=== PATIENT | female | born 1975 | race Hispanic/Latino ===

== ENCOUNTER → 2021-08-03 | Outpatient (CLI) | payer OTHER | END | disposition home or self-care (01) | LOC: DTH 13:37 | PROVIDERS: ATTEND Surgery | DX: Z71.3 Dietary counseling and surveillance (principal); E66.9 Obesity, unspecified; Z68.42 Body mass index [BMI] 45.0-49.9, adult | CPT/HCPCS: 97802 ==

== ENCOUNTER 2021-10-31 07:04 | Day surgery (SDC) | payer OTHER, MEDICARE ==
[~2021-10-31] VITALS: Ht 162.6 cm; Wt 127.5 kg
[2021-10-31] VITALS (8 sets, daily range): BP systolic 133–140; BP diastolic 55–88
[~2021-10-31 07:04] MED LIST: 0.9%NACL 1000ML 1,000 ML IV ONE
[2021-10-31] MEDS ORDERED: LIDOCAINE PF 100MG/5ML (2%) SYRINGE 5ML ONE (09:26)
[2021-10-31] MEDS ORDERED: PROPOFOL 10 MG/ML 20ML VIAL IV ONE (09:26)
[2021-10-31] MEDS ORDERED: GLYCOPYRROLATE 1 MG/5 ML SYRINGE ONE (09:26)
[2021-10-31] MEDS ORDERED: MIDAZOLAM HCL 1 MG/ML 2ML VIAL ONE (09:26)
[2021-10-31] MEDS ORDERED: ONDANSETRON 4MG INJ ONE (09:27)
[2021-10-31] MEDS ORDERED: ESMOLOL HCL 10 MG/ML 10 ML VIAL ONE (09:40)
== END 2021-10-31 10:06 | disposition home or self-care (01) ==
LOC: DAH 07:04 → ENDO 07:04
PROVIDERS: ATTEND Surgery
DX: K21.9 Gastro-esophageal reflux disease without esophagitis (principal); Z20.822 Contact with and (suspected) exposure to COVID-19; I10 Essential (primary) hypertension; E11.9 Type 2 diabetes mellitus without complications; E66.01 Morbid (severe) obesity due to excess calories; G47.30 Sleep apnea, unspecified; F41.9 Anxiety disorder, unspecified; F32.9 Major depressive disorder, single episode, unspecified; E78.5 Hyperlipidemia, unspecified; Z98.890 Other specified postprocedural states; Z68.42 Body mass index [BMI] 45.0-49.9, adult
CPT/HCPCS: 36415; 43239; 71045; 84703; 87635; 93005; A4215 ×2; A4221; A4222; A4223; A4606; A4620; A4657; A4663; C9803; J2001; J2250; J2405; J2704; J3490 ×2; J7030

== ENCOUNTER 2021-12-02 14:00 | Inpatient (IN) | payer OTHER, MEDICARE ==
[~2021-12-02] VITALS: Ht 162.6 cm; Wt 125.4 kg
[2021-12-02 16:30] LABS: BASOPHILS % (AUTO) 0.7 % (0.0-5.0); EOSINOPHILS % (AUTO) 0.9 % (0.0-8.0); HEMATOCRIT 40.7 % (36-48); LYMPHOCYTES % (AUTO) 15.5 % (21.0-51.0); MEAN CORPUSCULAR HGB CONC 32.2 g/dL (32.0-36.0); MEAN CORPUSCULAR VOLUME 80.9 fL (79-99); MONOCYTES % (AUTO) 3.7 % (3.0-13.0); NEUTROPHILS % (AUTO) 77.4 % (40.0-77.0); PLATELET COUNT (AUTO) 309 K/uL (130-400); RED BLOOD CELL COUNT(AUTO) 5.03 MIL/uL (4.00-5.50); RED CELL DISTRIBUTION WIDTH 13.6 % (11.0-15.5)
[2021-12-02 16:39] LABS: CREATININE 0.9 mg/dL (0.5-1.5); POTASSIUM 4.3 mmol/L (3.5-5.1)
[2021-12-02] MEDS ORDERED: LURA60TA PO (16:39)
[2021-12-02 16:47] LABS: INR 1.04 (0.85-1.15); PROTHROMBIN TIME 11.3 SEC (9.6-11.6)
[2021-12-02 20:06] VITALS: BP 162/87
[2021-12-02] MEDS ORDERED: CALCIUM PO (20:14)
[2021-12-02] MEDS ORDERED: BIOTIN PO (20:14)
[2021-12-02] MEDS ORDERED: MV-M1TAB20 PO (20:14)
[2021-12-02] MEDS ORDERED: LORA-192 PO (20:14)
[2021-12-02] MEDS ORDERED: LEVO5TAB29 PO (20:14)
[2021-12-02] MEDS ORDERED: MONT10TA21 PO (20:14)
[2021-12-02] MEDS ORDERED: LEVA15HF3 IH (20:14)
[2021-12-02] MEDS ORDERED: BUDE10.7 IH (20:14)
[2021-12-02] MEDS ORDERED: DIGE1TAB PO (20:14)
[2021-12-02] MEDS ORDERED: BUPR100T5 PO ×2 (20:14)
[2021-12-02] MEDS ORDERED: LEVO50CA4 PO (20:14)
[2021-12-02] MEDS ORDERED: LOSA100T58 PO (20:14)
[2021-12-02] MEDS ORDERED: ZINC PO (20:14)
[2021-12-02] MEDS ORDERED: MULT-952 PO (20:14)
[2021-12-02] MEDS ORDERED: VITAMIN C PO (20:14)
[2021-12-02] MEDS ORDERED: FLUO60TA PO (20:14)
[2021-12-05] VITALS (23 sets, daily range): BP systolic 126–185; BP diastolic 70–101
[2021-12-05] MEDS ORDERED: LACTATED RINGERS 1000ML 1,000 ML IV ONE (07:43)
[2021-12-05] MEDS ORDERED: PROPOFOL 10 MG/ML 20ML VIAL IV ONE (07:48)
[2021-12-05] MEDS ORDERED: ROCURONIUM 10MG/1ML SYR 10 MG/ML ML ONE (07:48)
[2021-12-05] MEDS ORDERED: MIDAZOLAM HCL 1 MG/ML 2ML VIAL ONE (07:48)
[2021-12-05] MEDS ORDERED: FENTANYL CITRATE PF 50 MCG/1 ML 5ML AMP IV ONE (07:49)
[2021-12-05] MEDS: CEFAZOLIN SODIUM 1 GM VIAL ONE ×2 (08:17→09:38)
[2021-12-05] MEDS ORDERED: BUPIVACAINE/PF 0.5% 30ML VIAL ONE (08:28)
[2021-12-05] MEDS ORDERED: ROCURONIUM BROMIDE 10MG/1ML 5ML VL ONE (10:04)
[2021-12-05] MEDS ORDERED: ONDANSETRON 4MG INJ ONE (11:09)
[2021-12-05] MEDS ORDERED: NEOSTIGMINE 5MG/5ML SYR IV ONE (11:10)
[2021-12-05] MEDS ORDERED: KETOROLAC 30MG VIAL (30MG/ML) ONE ×2 (11:28→17:20)
[2021-12-05] MEDS ORDERED: MEPERIDINE-PF 25 MG/ML SYG ONE (11:28)
[2021-12-05] MEDS: ONDANSETRON 4MG INJ IVP PRN ×3 (11:45→21:12)
[2021-12-05] MEDS ORDERED: METOCLOPRAMIDE 10 MG/2 ML VIAL ONE (11:50)
[2021-12-05] MEDS: LACTATED RINGERS 1000ML 1,000 ML IV SCH ×2 (13:12→22:38)
[2021-12-05] MEDS: MORPHINE 4 MG SYG IVP PRN ×2 (14:02→22:08)
[2021-12-05] MEDS ORDERED: ENALAPRILAT DIHYDRATE 1.25MG/ML 1ML VIAL IV ONE (17:28)
[2021-12-05] MEDS ORDERED: ENALAPRILAT DIHYDRATE 1.25MG/ML 1ML VIAL IV PRN ×2 (17:30→23:30)
[2021-12-05] MEDS ORDERED: HYDRALAZINE 20MG/ML VIAL IV PRN (17:30)
[2021-12-05] MEDS ORDERED: LORAZEPAM 2 MG/ML 1 ML VIAL IVP PRN (18:00)
[2021-12-05] MEDS: CEFAZOLIN SODIUM 1 GM VIAL IVP SCH (18:08)
[2021-12-05] MEDS: INSULIN HUMULIN R 100 UNIT/ML 3ML SQ SCH (21:00)
[2021-12-05] MEDS: ENOXAPARIN SODIUM 30 MG/0.3 ML SQ SCH (21:12)
[2021-12-05] MEDS: FAMOTIDINE 20MG VIAL IV SCH (21:12)
[2021-12-06] VITALS: BP 151/88
[2021-12-06] MEDS: CEFAZOLIN SODIUM 1 GM VIAL IVP SCH ×3 (01:43→17:19)
[2021-12-06] MEDS: ONDANSETRON 4MG INJ IVP PRN (04:11)
[2021-12-06] MEDS: MORPHINE 4 MG SYG IVP PRN ×3 (04:11→15:30)
[2021-12-06 04:53] LABS: BASOPHILS % (AUTO) 0.4 % (0.0-5.0); EOSINOPHILS % (AUTO) 0.1 % (0.0-8.0); HEMATOCRIT 35.9 % (36-48); LYMPHOCYTES % (AUTO) 14.4 % (21.0-51.0); MEAN CORPUSCULAR HEMOGLOBIN 25.6 pg (27.0-33.0); MEAN CORPUSCULAR HGB CONC 31.8 g/dL (32.0-36.0); MEAN CORPUSCULAR VOLUME 80.7 fL (79-99); MONOCYTES % (AUTO) 6.6 % (3.0-13.0); NEUTROPHILS % (AUTO) 77.9 % (40.0-77.0); PLATELET COUNT (AUTO) 221 K/uL (130-400); RED BLOOD CELL COUNT(AUTO) 4.45 MIL/uL (4.00-5.50); RED CELL DISTRIBUTION WIDTH 13.2 % (11.0-15.5); WHITE BLOOD COUNT (AUTO) 11.2 K/uL (4.8-10.8)
[2021-12-06 04:59] VITALS: BP 145/73
[2021-12-06 05:06] LABS: CREATININE 0.9 mg/dL (0.5-1.5); POTASSIUM 3.9 mmol/L (3.5-5.1)
[2021-12-06] MEDS: LACTATED RINGERS 1000ML 1,000 ML IV SCH ×2 (05:49→11:30)
[2021-12-06] MEDS: INSULIN HUMULIN R 100 UNIT/ML 3ML SQ SCH ×4 (06:49→21:00)
[2021-12-06 08:56] VITALS: BP 156/99
[2021-12-06] MEDS ORDERED: METOCLOPRAMIDE 10 MG/2 ML VIAL ONE (09:46)
[2021-12-06] MEDS: ENOXAPARIN SODIUM 30 MG/0.3 ML SQ SCH ×2 (10:17→21:46)
[2021-12-06] MEDS: FAMOTIDINE 20MG VIAL IV SCH ×2 (10:17→21:31)
[2021-12-06] MEDS: METOCLOPRAMIDE 10 MG/2 ML VIAL IVP SCH (10:25)
[2021-12-06 12:07] VITALS: BP 148/76
[2021-12-06] MEDS ORDERED: SCOPOLAMINE HYDROBROMIDE 1 EACH ADH..PATCH TD SCH (15:30)
[2021-12-06 16:30] VITALS: BP 156/79
[2021-12-06] MEDS ORDERED: HYDROCORTISONE SOD SUCCINATE 100 MG/2 ML VIAL ONE (17:07)
[2021-12-06 20:26] VITALS: BP 154/84
[2021-12-06] MEDS: HYDROCORTISONE SOD SUCCINATE 100 MG/2 ML VIAL IV SCH (21:35)
[2021-12-07] VITALS (7 sets, daily range): BP systolic 126–148; BP diastolic 69–78
[2021-12-07] MEDS: CEFAZOLIN SODIUM 1 GM VIAL IVP SCH (01:30)
[2021-12-07] MEDS: LACTATED RINGERS 1000ML 1,000 ML IV SCH ×3 (02:25→18:50)
[2021-12-07 04:12] LABS: BASOPHILS % (AUTO) 0.5 % (0.0-5.0); EOSINOPHILS % (AUTO) 0.1 % (0.0-8.0); HEMATOCRIT 33.8 % (36-48); LYMPHOCYTES % (AUTO) 14.9 % (21.0-51.0); MEAN CORPUSCULAR HEMOGLOBIN 26.6 pg (27.0-33.0); MEAN CORPUSCULAR HGB CONC 32.8 g/dL (32.0-36.0); MEAN CORPUSCULAR VOLUME 80.9 fL (79-99); MONOCYTES % (AUTO) 4.4 % (3.0-13.0); NEUTROPHILS % (AUTO) 78.7 % (40.0-77.0); PLATELET COUNT (AUTO) 248 K/uL (130-400); RED BLOOD CELL COUNT(AUTO) 4.18 MIL/uL (4.00-5.50); RED CELL DISTRIBUTION WIDTH 13.2 % (11.0-15.5); WHITE BLOOD COUNT (AUTO) 10.9 K/uL (4.8-10.8)
[2021-12-07 04:48] LABS: BILIRUBIN,TOTAL 0.2 mg/dL (0.2-1.0); CREATININE 0.7 mg/dL (0.5-1.5); POTASSIUM 3.9 mmol/L (3.5-5.1); TOTAL PROTEIN, SERUM 6.9 g/dL (6.0-8.3)
[2021-12-07] MEDS: INSULIN HUMULIN R 100 UNIT/ML 3ML SQ SCH ×4 (07:30→20:21)
[2021-12-07] MEDS: FAMOTIDINE 20MG VIAL IV SCH ×2 (08:45→20:20)
[2021-12-07] MEDS: HYDROCORTISONE SOD SUCCINATE 100 MG/2 ML VIAL IV SCH ×2 (08:45→20:20)
[2021-12-07] MEDS: ENOXAPARIN SODIUM 30 MG/0.3 ML SQ SCH ×2 (08:46→20:30)
[2021-12-07] MEDS: METOCLOPRAMIDE 10 MG/2 ML VIAL IVP SCH ×3 (09:03→17:04)
[2021-12-08] MEDS: LACTATED RINGERS 1000ML 1,000 ML IV SCH (03:14)
[2021-12-08 04:04] VITALS: BP 135/82
[2021-12-08] MEDS: INSULIN HUMULIN R 100 UNIT/ML 3ML SQ SCH (06:18)
[2021-12-08] MEDS: METOCLOPRAMIDE 10 MG/2 ML VIAL IVP SCH (06:29)
[2021-12-08 07:43] VITALS: BP 135/76
[2021-12-08] MEDS: HYDROCORTISONE SOD SUCCINATE 100 MG/2 ML VIAL IV SCH (08:27)
[2021-12-08] MEDS: FAMOTIDINE 20MG VIAL IV SCH (08:27)
[2021-12-08] MEDS: ENOXAPARIN SODIUM 30 MG/0.3 ML SQ SCH (08:28)
[2021-12-08 11:11] VITALS: BP 130/58
== END 2021-12-08 12:51 | disposition home or self-care (01) | DRG 621 ==
LOC: EDSTATUS 14:00 → DAHIP 12-05 07:02 → 4BH 12-05 12:49
PROVIDERS: ADMIT Surgery; ATTEND Surgery
PROC: 0DB64Z3 Excision of Stomach, Percutaneous Endoscopic Approach, Vertical (ICD-10-PCS; principal; 2021-12-05 09:10)
PROC: 0DJ08ZZ Inspection of Upper Intestinal Tract, Via Natural or Artificial Opening Endoscopic (ICD-10-PCS; 2021-12-05 09:10)
PROC: 0DN64ZZ Release Stomach, Percutaneous Endoscopic Approach (ICD-10-PCS; 2021-12-05 09:10)
DX: E66.01 Morbid (severe) obesity due to excess calories (principal); I10 Essential (primary) hypertension; Z68.42 Body mass index [BMI] 45.0-49.9, adult; K66.0 Peritoneal adhesions (postprocedural) (postinfection); Z20.822 Contact with and (suspected) exposure to COVID-19; Z88.8 Allergy status to other drugs, medicaments and biological substances
CPT/HCPCS: 36415; 43235; 74240; 80048; 80053; 82948; 84703; 85025; 85610; 85730; 87635; 94760; A4606; G0378; J0690; J1650; J1720; J1885; J2060; J2175; J2250; J2270; J2405; J2704; J2710; J2765; J3010; J3490; J7030; J7120